=== PATIENT | female | born 1960 | race Caucasian/White ===

== ENCOUNTER → 2016-10-20 | Outpatient (CLI) | payer BC ==
[~2016-10-20] MED LIST: METO-269 PO; [UNRECOGNIZED DRUG - CODE] MC
--- NOTE | 2016-10-20 16:55 | KCIC ---
MRI right knee without contrast dated 10/20/2016 4:15 PM Indication: Right knee pain , pain for 6 months. Possible meniscal tear, pain is located medially. Comparison: No comparison is available. Technique: Routine multiplanar multisequence imaging performed. No contrast administered. Findings: Bone marrow signal is homogeneous. No marrow edema. Mild tricompartmental hypertrophic changes with mild thinning and surface irregularity of the articular cartilage throughout. Full-thickness cartilage loss at the lateral patellar facet, lateral femoral trochlea and medial femoral trochlea and trochlear groove. Small joint effusion. Small popliteal cyst measures up to 4.7 cm craniocaudal dimension. No intra-articular loose body. Anterior cruciate and posterior cruciate ligaments are intact. Medial and lateral collateral complexes are intact. Iliotibial band, popliteus tendon and pes anserine complex within normal limits. Quadriceps and patellar tendon are intact. Mild increased signal within the substance of the distal quadriceps tendon. No abnormality of the medial or lateral retinaculum. Both menisci are normal in morphology and signal. No articular surface tear or perimeniscal cyst. IMPRESSION: 1. No evidence of internal derangement. 2. Mild tricompartmental degenerative arthrosis and chondromalacia. There is full-thickness cartilage loss at the anterior compartment. 3. Small joint effusion and small popliteal cyst. 4. Mild distal quadriceps tendinosis. Electronically signed by: Jcarlos Kaur MD (10/20/2016 4:52 PM) [facility]
== END | disposition home or self-care (01) ==
LOC: KCIC MRI 16:08
PROVIDERS: ATTEND Orthopaedic Surgery
DX: M17.11 Unilateral primary osteoarthritis, right knee (principal); M94.261 Chondromalacia, right knee; M25.461 Effusion, right knee; M71.21 Synovial cyst of popliteal space [Baker], right knee
CPT/HCPCS: 73721

== ENCOUNTER → 2017-02-24 | Outpatient (CLI) | payer BC ==
--- NOTE | 2017-02-24 10:10 | KCIC ---
DATE: 02/24/2017 EXAM: DIGITAL DIAGNOSTIC BILATERAL HISTORY: Palpable lump in the right breast. COMPARISON: 11/02/2014 This study was interpreted with the benefit of Computerized Aided Detection (CAD). FINDINGS: Bilateral subpectoral breast implants are again noted. The implant contours appear stable. The parenchymal pattern appears stable. A marker was placed at the 6:00 location. No underlying mass is seen. The implant displaced views are unremarkable. No suspicious microcalcifications are seen. The axillae are unremarkable. Impression: No mammographic features suspicious for malignancy are identified. Even so, further evaluation of the right breast with ultrasound at the area of abnormality is recommended. Right breast ultrasound: Sonographic interrogation of the area of palpable abnormality in the inferior right breast was performed. No solid or cystic mass is detected. Breast Density: HETERO The breast parenchyma is heterogeneously dense, which could reduce sensitivity of mammography. Breast parenchyma level C. IMPRESSION: No sonographic abnormality is seen. Clinical and self breast exam is recommended to confirm stability of the palpable abnormality in the right breast. BI-RADS CATEGORY: 2 BENIGN FINDING(S) RECOMMENDED FOLLOW-UP: 12M 12 MONTH FOLLOW-UP PQRS compliance statement: Patient information was entered into a reminder system with a target due date 02/24/2018 for the next mammogram. Mammography is a sensitive method for finding small breast cancers, but it does not detect them all and is not a substitute for careful clinical examination. A negative mammogram does not negate a clinically suspicious finding and should not result in delay in biopsying a clinically suspicious abnormality. "Our facility is accredited by the [employer] Mammography [employer]."
== END | disposition home or self-care (01) ==
LOC: KCIC MAMMO 08:50
PROVIDERS: ATTEND Obstetrics & Gynecology
DX: N63.10 Unspecified lump in the right breast, unspecified quadrant (principal); R92.2 Inconclusive mammogram
CPT/HCPCS: 76641; G0204; 77066

== ENCOUNTER → 2018-06-21 | Outpatient (CLI) | payer BC ==
--- NOTE | 2018-06-21 11:58 | KCIC ---
Bilateral digital screening mammograms with 3-D tomosynthesis: Reason for examination: Routine screening. Comparison is made to previous study dated 11/02/2014. Bilateral mammograms in CC and oblique projections were obtained with 2-D imaging and 3-D tomosynthesis imaging on a Siemens Inspiration unit and reviewed on the workstation. Interpretation was made with the benefit of CAD. The skin and nipples show no abnormalities. No abnormal axillary lymph nodes are seen. Bilateral breast implants remain present. The breast parenchyma is extremely dense. (Breast density: Category D.) There are no dominant masses, suspicious calcifications or architectural distortion. Impression: No evidence of malignancy. Recommend routine screening. Your patient's mammogram demonstrates that she has dense breast tissue (breast density category C or D), which could hide abnormalities, and if she has other risk factors for breast cancer that have been identified, she might benefit from supplemental screening tests that may be suggested by you as her ordering physician. Dense breast tissue, in and of itself, is a relatively common condition. Therefore, this information is not provided to cause undue concern, but rather to raise your awareness and to promote discussion with your patient regarding the presence of other risk factors, in addition to dense breast tissue. Your patient's mammography results will be sent to her. BI-RAD Category 1: Negative. "Our facility is accredited by the [employer]amm[employer]." This patient's information has been entered into a reminder system for the patient to be notified with the results of her examination and a target date for the next mammogram. Electronically signed by: Helen Miranda MD (06/21/2018 11:56 AM) [facility]
== END | disposition home or self-care (01) ==
LOC: KCIC 11:04
PROVIDERS: ATTEND Obstetrics & Gynecology
DX: Z12.31 Encounter for screening mammogram for malignant neoplasm of breast (principal); Z98.82 Breast implant status
CPT/HCPCS: 77063; 77067

== ENCOUNTER → 2018-12-30 | Outpatient (CLI) | payer BC ==
--- NOTE | 2018-12-30 16:07 | KCIC ---
Right breast diagnostic digital mammograms with 3-D tomosynthesis: Reason for examination: Right breast lumps for one month. Comparison is made to previous studies dated 06/21/2018 and 02/24/2017. Right mammograms in CC and oblique projections were obtained with 2-D imaging and 3-D tomosynthesis imaging on a Siemens Inspiration unit and reviewed on the workstation. Interpretation was made with the benefit of CAD. The skin and nipple show no abnormalities. No abnormal axillary lymph nodes are seen. Right breast implant remains present in the subpectoralis position. The breast parenchyma is extremely dense. (Breast density: Category D.) There are no dominant masses, suspicious calcifications or architectural distortion. Impression: No evidence of malignancy. Ultrasound to follow. Your patient's mammogram demonstrates that she has dense breast tissue (breast density category C or D), which could hide abnormalities, and if she has other risk factors for breast cancer that have been identified, she might benefit from supplemental screening tests that may be suggested by you as her ordering physician. Dense breast tissue, in and of itself, is a relatively common condition. Therefore, this information is not provided to cause undue concern, but rather to raise your awareness and to promote discussion with your patient regarding the presence of other risk factors, in addition to dense breast tissue. Your patient's mammography results will be sent to her. BI-RAD Category 0: Incomplete. Needs additional imaging evaluation. Right breast ultrasound: Right whole breast ultrasound including evaluation of all 4 quadrants and the retroareolar and axillary regions of the right breast was performed. The breast parenchyma is extremely dense. A discrete cystic or solid nodule is not identified. No abnormal appearing lymph nodes are seen in the axilla. IMPRESSION: Dense fibroglandular tissue without a discrete nodule identified. Recommend clinical correlation for areas of clinical concern. Recommend routine mammographic follow-up. BI-RADS Category 2: Benign. "Our facility is accredited by the [employer] Mammography [employer]." This patient's information has been entered into a reminder system for the patient to be notified with the results of her examination and a target date for the next mammogram. Electronically signed by: Helen Miranda MD (12/30/2018 4:04 PM) [facility]
== END | disposition home or self-care (01) ==
LOC: KCIC MAMMO 07:51
PROVIDERS: ATTEND Obstetrics & Gynecology
DX: N63.10 Unspecified lump in the right breast, unspecified quadrant (principal); R92.2 Inconclusive mammogram; Z98.82 Breast implant status
CPT/HCPCS: 76641; 77065; G0279; 77061

== ENCOUNTER → 2019-02-24 | Outpatient (CLI) | payer BC ==
--- NOTE | 2019-02-24 11:46 | KCIC ---
EXAM: Pelvic sonogram. HISTORY: Postmenopausal bleeding. TECHNIQUE: Sonographic imaging of the pelvis was performed. COMPARISON: None. FINDINGS: The uterus measures 8.8 x 6.1 x 4.8 cm. The uterus is heterogeneous and contains fibroids measuring 1.9 cm and 3.0 cm. the endometrial stripe measures 9.4 mm in maximum thickness. The ovaries are obscured. There is no pelvic free fluid. IMPRESSION: 1. Thickened endometrial stripe for the postmenopausal status of the patient. In the setting of postmenopausal bleeding, tissue sampling may be indicated for definitive diagnosis. 2. Heterogeneous uterus containing small fibroids. 2. Obscured ovaries. Electronically signed by: Regina Daley MD (02/24/2019 11:43 AM) [facility]
== END | disposition home or self-care (01) ==
LOC: KCIC US 10:53
PROVIDERS: ATTEND Family Medicine
DX: N95.0 Postmenopausal bleeding (principal); D25.9 Leiomyoma of uterus, unspecified
CPT/HCPCS: 76830; 76856

== ENCOUNTER → 2020-03-28 | Outpatient (CLI) | payer BC ==
--- NOTE | 2020-03-28 09:23 | KCIC ---
EXAM: Abdomen, 2 views HISTORY: Pain. COMPARISON: None. FINDINGS: 2 views of the abdomen are obtained. There is gas and stool within the colon. No abnormally dilated loop of bowel seen. There is no free air. There is degenerative change at the lower lumbar l evels. IMPRESSION: Nonobstructive bowel gas pattern. Electronically signed by: Regina Daley MD (03/28/2020 9:21 AM) [id number]
== END ==
LOC: KCIC 08:53
PROVIDERS: ATTEND Family Medicine
DX: K59.00 Constipation, unspecified (principal); R10.84 Generalized abdominal pain
CPT/HCPCS: 74021